=== PATIENT | male | born 1970 | race Two or more races ===

== ENCOUNTER 2022-02-19 05:44 | Day surgery (SDC) | payer OTHER ==
[2022-02-19] MEDS ORDERED: PERCOCET 5-3251 EACH PO (08:00)
[2022-02-19] MEDS ORDERED: COLACE100 MG PO (08:00)
== END 2022-02-19 15:30 | disposition home or self-care (01) ==
LOC: CIR.AMB 05:44
PROVIDERS: ATTEND Surgery
DX: K64.8 Other hemorrhoids (principal); K62.89 Other specified diseases of anus and rectum; E78.5 Hyperlipidemia, unspecified; Z20.822 Contact with and (suspected) exposure to COVID-19